=== PATIENT | female | born 1995 | race Caucasian/White ===

== ENCOUNTER 2020-11-29 11:25 | Day surgery (SDC) | payer MEDICAID, SELFPAY ==
[~2020-11-29] VITALS: Ht 167.6 cm; Wt 72.6 kg
[2020-11-29 12:00] LABS: HCG,QUAL RESULT NEGATIVE (NEGATIVE)
[2020-11-29] MEDS ORDERED: METOPROLOL TARTRATE 5 MG/5 ML VIAL IVP ONE (12:11)
[2020-11-29] MEDS ORDERED: DEXAMETHASONE SOD PHOSPHATE 4 MG/ML VIAL IVP ONE (12:11)
[2020-11-29] MEDS ORDERED: PROPOFOL 200MG/ 20ML VIAL (DIPRIVAN) IV ONE (12:11)
[2020-11-29] MEDS ORDERED: SUGAMMADEX SODIUM 200 MG/2 ML VIAL IV ONE (12:11)
[2020-11-29] MEDS ORDERED: LIDOCAINE 2%, 20 ML MDV INJ ONE (12:11)
[2020-11-29] MEDS ORDERED: ONDANSETRON HCL 4 MG/2 ML VIAL IVP ONE (12:11)
[2020-11-29] MEDS ORDERED: MIDAZOLAM HCL 5 MG/5 ML VIAL IVP ONE (12:11)
[2020-11-29] MEDS ORDERED: KETOROLAC TROMETHAMINE 30 MG VIAL IVP ONE (12:11)
[2020-11-29] MEDS ORDERED: NS 1000 ML IV.SOLN IV ONE (12:11)
[2020-11-29] MEDS ORDERED: EPINEPHrine 1 MG/ML AMP IV ONE (12:11)
[2020-11-29] MEDS ORDERED: LIDOCAINE/EPI 1% 1:100000 20 ML VIAL INJ ONE (12:11)
[2020-11-29] MEDS ORDERED: NS IRRIG SOLN 1000 ML IR ONE (12:11)
[2020-11-29] MEDS ORDERED: ROCURONIUM BROMIDE 10 MG/ML (ZEMURON) IV ONE (12:11)
[2020-11-29] MEDS ORDERED: WATER FOR IRRIGATION,STERILE 1,000 ML IRRIG.SOLN IR ONE (12:11)
[2020-11-29] MEDS ORDERED: MUPIROCIN 2% TOPICAL OINTMENT 22 GM TP ONE (12:11)
[2020-11-29] MEDS ORDERED: DESFLURANE 15 MIN GAS INH ONE (12:11)
[2020-11-29] MEDS ORDERED: LR 1,000 ML IV.SOLN IV ONE (12:11)
[2020-11-29] MEDS ORDERED: fentaNYL CITRATE 250 MCG/5 ML AMP IV ONE (12:11)
[2020-11-29] MEDS ORDERED: MIDAZOLAM HCL 2 MG/2 ML VIAL (VERSED) IVP PRN (13:00)
[2020-11-29] MEDS ORDERED: MEPERIDINE HCL/PF 25 MG/ML DISP.SYRIN IVP PRN (13:00)
[2020-11-29] MEDS ORDERED: HYDROmorphone 1 MG INJ. 1 MG/ML CARTRIDGE IVP PRN ×2 (13:00)
[2020-11-29] MEDS ORDERED: LR 1,000 ML IV SCH (13:00)
[2020-11-29] MEDS ORDERED: ONDANSETRON HCL 4 MG/2 ML VIAL IVP PRN (13:00)
[2020-11-29] MEDS ORDERED: METOCLOPRAMIDE HCL 10 MG/2 ML VIAL IVP PRN (13:00)
[2020-11-29 16:25] VITALS: BP_SYST 121
== END 2020-11-29 17:30 | disposition home or self-care (01) ==
LOC: SDS 11:25 → SMU 11:25 → SDS 17:30
PROVIDERS: ATTEND Otolaryngology
DX: J34.89 Other specified disorders of nose and nasal sinuses (principal); J32.9 Chronic sinusitis, unspecified; J34.2 Deviated nasal septum; D38.5 Neoplasm of uncertain behavior of other respiratory organs; E28.2 Polycystic ovarian syndrome; J30.1 Allergic rhinitis due to pollen; R09.81 Nasal congestion; Z79.899 Other long term (current) drug therapy
CPT/HCPCS: 30140; 30520; 31255; 31295; 31298; 36415; 84703; 87426; 88304; 88305; 88311; C1726; C9399; J0171; J1100; J1885; J2001; J2250; J2405; J2704; J3010; J3490; J7030; J7120